=== PATIENT | female | born 1985 | race Caucasian/White ===

== ENCOUNTER 2016-07-13 06:17 | Day surgery (SDC) | payer OTHER ==
[2016-07-13] MEDS ORDERED: ceFAZolin 1 GM VIAL ONE (06:34)
[2016-07-13] MEDS ORDERED: BUPIVACAINE 0.5% PF 30 ML VIAL SUBQ ONE ×2 (07:25)
[2016-07-13] MEDS ORDERED: LACTATED RINGERS 1,000 ML IV ONE ×3 (07:30→08:08)
[2016-07-13] MEDS ORDERED: DEXAMETHASONE 4 MG/ML VIAL IVP ONE (08:00)
[2016-07-13] MEDS ORDERED: ROCURONIUM 50 MG/5 ML VIAL IVP ONE (08:00)
[2016-07-13] MEDS ORDERED: PROPOFOL 200 MG/20 ML VIAL IVP ONE (08:00)
[2016-07-13] MEDS ORDERED: KETOROLAC 30 MG/ML VIAL IVP ONE (08:00)
[2016-07-13] MEDS ORDERED: ONDANSETRON 4 MG/2 ML VIAL IVP ONE (08:00)
[2016-07-13] MEDS ORDERED: SUCCINYLCHOLINE 200 MG/10 ML VIAL IVP ONE (08:00)
[2016-07-13] MEDS ORDERED: GLYCOPYRROLATE 1 MG/5 ML VIAL IVP ONE (08:00)
[2016-07-13] MEDS ORDERED: MIDAZOLAM 2 MG/2 ML VIAL IVP ONE (08:00)
[2016-07-13] MEDS ORDERED: LIDOCAINE-MPF 2% 5 ML VIAL IM ONE (08:00)
[2016-07-13] MEDS ORDERED: NEOSTIGMINE 1 MG/1 ML 10 ML MDV IVP ONE (08:00)
[2016-07-13] MEDS ORDERED: oxyCOD/ACETAMIN 5 MG/325 MG TABLET PO ONE (09:12)
== END 2016-07-13 06:18 | disposition home or self-care (01) ==
PROC: 0WQF0ZZ Repair Abdominal Wall, Open Approach (ICD-10-PCS; principal; 2016-07-13 07:30)
DX: K42.9 Umbilical hernia without obstruction or gangrene (principal)
CPT/HCPCS: 49585; 81025; A9270; J7120

== ENCOUNTER 2017-01-02 10:01 | Emergency (ER) | payer MEDICAID, OTHER ==
[2017-01-02] MEDS ORDERED: SODIUM CHLORIDE 0.9% 1,000 ML IV ONE (10:51)
[2017-01-02] MEDS ORDERED: ONDANSETRON 4 MG/2 ML VIAL IVP STA (10:51)
--- NOTE | 2017-01-02 10:55 | ED Physician Documentation ---
History of Present Illness - Stated complaint Stated Complaint: DEHYDRATED,VOMITTING/15 WKS PG - Chief complaint Chief Complaint: General - Additonal information Additional information: Patient is a 4 para 3 at 14 weeks who has had recurrent issues with hyperemesis gravidarum during all of her pregnancies. She is on Zofran occasionally. She presents with a complaint of mild nausea, vomiting, and diarrhea over the last day. She has no pain or fever. There is no vaginal bleeding. She otherwise is doing well. Other than a recurrent hyperemesis gravidarum she has no health problems. Review of systems: For pertinent positive and negatives in the review of systems please see the history of present illness, otherwise all other systems have been reviewed and are negative. Dragon disclaimer: Parts of this medical record were created using voice recognition technology. Because of the inherent limitations of this system, occasional same sounding word substitutions do occur and persist despite proofreading. Please read the document for context. Review of Systems Constitutional: denies: Fever, Chills GI: reports: Nausea, Vomiting, Diarrhea. denies: Abdominal Pain, Abdominal Swelling PD PAST MEDICAL HISTORY - Past Medical History Cardiovascular: None Respiratory: None Endocrine/Autoimmune: None GI: None : None HEENT: Chronic vision loss Psych: None Musculoskeletal: Scoliosis Derm: None - Past Surgical History Ortho: Other - Present Medications Home Medications: Ambulatory Orders Medication Instructions Recorded Confirmed Multivitamin [Multivitamins] 1 each PO DAILY 07/10/16 01/02/17 Ondansetron HCl [Zofran] 4 mg PO DAILY 01/02/17 01/02/17 Pnv No.121/Iron/Folic Acid 1 tab PO DAILY 01/02/17 01/02/17 [ Multivitamin Tablet] - Allergies Allergies/Adverse Reactions: Allergies Allergy/AdvReac Type Severity Reaction Status Date / Time acetaminophen Allergy Anaphylaxis Verified 07/10/16 14:03 - Social History Does the pt smoke?: No Smoking Status: Never smoker Does the pt drink ETOH?: No Does the pt have substance abuse?: No PD ED PE NORMAL - Vitals Vital signs reviewed: Yes - General General: Alert and oriented X 3, No acute distress, Well developed/nourished - HEENT HEENT: Atraumatic, PERRL, EOMI - Neck Neck: Supple, no meningeal sign, No bony TTP - Cardiac Cardiac: RRR, No murmur - Respiratory Respiratory: No respiratory distress, Clear bilaterally - Abdomen Abdomen: Normal bowel sounds, Soft, Non tender, Non distended, Other (Soft nontender abdomen) - Derm Derm: Normal color, Warm and dry - Extremities Extremities: No deformity, No tenderness to palpate - Neuro Neuro: Alert and oriented X 3 Results - Vitals Vitals: Vital Signs - 24 hr 01/02/17 01/02/17 10:10 12:08 Temperature 36.4 C L Heart Rate 97 82 Respiratory 12 16 Rate Blood Pressure 113/66 121/64 O2 Saturation 99 100 Oxygen O2 Source Room air - Labs Labs: Laboratory Tests 01/02/17 01/02/17 01/02/17 11:11 11:11 12:03 WBC 7.5 RBC 4.41 Hgb 13.7 Hct 39.2 MCV 88.9 MCH 31.1 H MCHC 35.0 RDW 13.5 Plt Count 175 MPV 8.3 Neut # 6.1 Lymph # 0.8 L [place] # 0.4 Eos # 0.1 Baso # 0.0 Absolute Nucleated RBC 0.00 Nucleated RBCs 0.0 Sodium 135 Potassium 3.6 Chloride 104 Carbon Dioxide 22 Anion Gap 9.0 BUN 6 Creatinine 0.5 Estimated GFR (MDRD) 145 Glucose 86 Calcium 9.3 Urine Color YELLOW Urine Clarity CLEAR Urine pH 7.0 Ur Specific [place] 1.020 Urine Protein NEGATIVE Urine Glucose (UA) NEGATIVE Urine Ketones 40 H Urine Occult Blood NEGATIVE Urine Nitrite NEGATIVE Urine Bilirubin NEGATIVE Urine Urobilinogen 1 (NORMAL) Ur Leukocyte Esterase NEGATIVE Ur Microscopic Review NOT INDICATED Urine Culture Comments NOT INDICATED PD MEDICAL DECISION MAKING - ED course ED course: 31-year-old female with a 14 week gestation child presents with a 2 day history of mild nausea vomiting diarrhea. She has a history of hyperemesis gravidarum and takes Zofran on an as-needed basis. On exam she is a well-appearing female does not look overtly ill she has a soft nontender abdomen. She is given 1 L normal saline and 1 L of lactated Ringer's and feels much better her blood work is unremarkable she is tolerating fluids here and is negative for infection at this point in time she will be discharged home. Disposition: To home Clinical impression: 1. Hyperemesis gravidarum Departure - Departure Disposition: Home, Self Care Clinical Impression: Hyperemesis arising during Condition: Good Instructions: ED Preg Morning Sickness Follow-Up: Gopi Bragg MD [Provider Admit Priv/Credential] -
[2017-01-02] MEDS ORDERED: ONDANSETRON 4 MG/2 ML VIAL ONE (11:09)
[2017-01-02] MEDS ORDERED: SODIUM CHLORIDE FLUSH 0.9% 10 ML SYRINGE IVP ONE (11:09)
[2017-01-02 11:23] LABS: BASOPHILS % (AUTO) 0.2 %; EOSINOPHILS # (AUTO) 0.1 10^3/uL (0.0-0.7); EOSINOPHILS % (AUTO) 0.9 %; HCT - HEMATOCRIT 39.2 % (37.0-47.0); HGB - HEMOGLOBIN 13.7 g/dL (12.0-16.0); LYMPHOCYTES # (AUTO) 0.8 10^3/uL (1.5-3.5); LYMPHOCYTES % (AUTO) 11.2 %; MEAN CORPUSCULAR HEMOGLOBIN 31.1 pg (27.0-31.0); MEAN CORPUSCULAR VOLUME 88.9 fL (81.0-99.0); MEAN PLATELET VOLUME 8.3 fL (7.9-10.8); MONOCYTES # (AUTO) 0.4 10^3/uL (0.0-1.0); MONOCYTES % (AUTO) 5.8 %; NEUTROPHILS # (AUTO) 6.1 10^3/uL (1.5-6.6); NEUTROPHILS % (AUTO) 81.9 %; RED BLOOD COUNT 4.41 10^6/uL (4.20-5.40); RED CELL DISTRIBUTION WIDTH 13.5 % (12.0-15.0); UNCORRECTED WHITE BLOOD COUNT 7.5 x10^3/uL; WHITE BLOOD COUNT 7.5 x10^3/uL (4.8-10.8)
[2017-01-02 11:37] LABS: CALCIUM 9.3 mg/dL (8.5-10.3); CREATININE 0.5 mg/dL (0.4-1.0); POTASSIUM 3.6 mmol/L (3.5-5.0)
[2017-01-02] MEDS ORDERED: LACTATED RINGERS 1,000 ML IV STA (12:12)
[2017-01-02 12:13] LABS: BILIRUBIN,URINE NEGATIVE (NEGATIVE)
[2017-01-02 12:14] LABS: UA CHARGE (STRIP ONLY) YES; UR CULTURE IF IND NOT INDICATED
[2017-01-02 13:46] VITALS: BP 101/59
== END 2017-01-02 13:51 | disposition home or self-care (01) ==
LOC: ED 10:01
DX: O21.0 Mild hyperemesis gravidarum (principal); Z3A.15 15 weeks gestation of pregnancy
CPT/HCPCS: 36415; 80048; 81003; 85025; 96361; 96374; 99283; 99284; J7120; 81001; 87086

== ENCOUNTER 2017-01-09 22:45 | Emergency (ER) | payer MEDICAID ==
[2017-01-09] MEDS ORDERED: SODIUM CHLORIDE 0.9% 1,000 ML IV ONE ×2 (23:00→23:36)
[2017-01-09 23:25] LABS: BASOPHILS % (AUTO) 0.2 %; EOSINOPHILS % (AUTO) 0.1 %; HCT - HEMATOCRIT 36.2 % (37.0-47.0); HGB - HEMOGLOBIN 13.2 g/dL (12.0-16.0); LYMPHOCYTES # (AUTO) 0.5 10^3/uL (1.5-3.5); LYMPHOCYTES % (AUTO) 8.8 %; MEAN CORPUSCULAR HEMOGLOBIN 31.2 pg (27.0-31.0); MEAN CORPUSCULAR HGB CONC 36.3 g/dL (32.0-36.0); MEAN CORPUSCULAR VOLUME 85.9 fL (81.0-99.0); MEAN PLATELET VOLUME 7.6 fL (7.9-10.8); MONOCYTES # (AUTO) 0.5 10^3/uL (0.0-1.0); MONOCYTES % (AUTO) 7.6 %; NEUTROPHILS # (AUTO) 5.1 10^3/uL (1.5-6.6); NEUTROPHILS % (AUTO) 83.3 %; NUCLEATED RED BLOOD CELLS AUTO 0.1 /100WBC; RED BLOOD COUNT 4.22 10^6/uL (4.20-5.40); RED CELL DISTRIBUTION WIDTH 13.5 % (12.0-15.0); UNCORRECTED WHITE BLOOD COUNT 6.1 x10^3/uL; WHITE BLOOD COUNT 6.1 x10^3/uL (4.8-10.8)
[2017-01-09 23:34] LABS: BILIRUBIN,URINE NEGATIVE (NEGATIVE); UA CHARGE (STRIP ONLY) YES; UR CULTURE IF IND NOT INDICATED
[2017-01-09 23:38] LABS: ALBUMIN/GLOBULIN RATIO 1.3 (1.0-2.2); BILIRUBIN,TOTAL 1.4 mg/dL (0.2-1.0); CREATININE 0.5 mg/dL (0.4-1.0); POTASSIUM 3.2 mmol/L (3.5-5.0); TOTAL PROTEIN 7.4 g/dL (6.7-8.2)
[2017-01-10] MEDS ORDERED: ONDANSETRON 4 MG/2 ML VIAL ONE (00:07)
[2017-01-10] MEDS ORDERED: ONDANSETRON 4 MG/2 ML VIAL IVP STA (00:07)
--- NOTE | 2017-01-10 00:25 | ED Physician Documentation ---
PD HPI FEMALE - Stated complaint Stated Complaint: VOMITTING BACK PX - Chief complaint Chief Complaint: Abd Pain - History obtained from History obtained from: Patient, Friend - History of Present Illness Timing - onset: How many days ago (3) Timing - details: Gradual onset, Still present Associated symptoms: Abdominal pain, Other (vomiting) Contributing factors: Similar symptoms before: Work up / diagnostics, Treatment Recently seen: Emergency Dept - Additional information Additional information: Patient is a 31 year female, 16 weeks by dates who is presenting to the emergency department for abdominal pain and vomiting. patient states that this she has had a lot of vomiting and again tonight it was uncontrollable so she came to the emergency department for evaluation. Review of Systems Constitutional: denies: Fever, Chills Eyes: denies: Decreased vision, Photophobia Ears: denies: Ear pain, Drainage/discharge Nose: denies: Congestion Throat: denies: Sore throat GI: reports: Abdominal Pain, Nausea, Vomiting. denies: Constipation, Diarrhea : denies: Dysuria, Frequency, Discharge, Vaginal bleeding Neurologic: denies: Generalized weakness, Focal weakness, Numbness Immunocompromised: denies: Immunocompromised PD PAST MEDICAL HISTORY - Past Medical History Past Medical History: Yes Cardiovascular: None Respiratory: None Endocrine/Autoimmune: None GI: None : None HEENT: Chronic vision loss Psych: None Musculoskeletal: Scoliosis Derm: None - Past Surgical History Past Surgical History: Yes Ortho: Other - Present Medications Home Medications: Ambulatory Orders Medication Instructions Recorded Confirmed Multivitamin [Multivitamins] 1 each PO DAILY 07/10/16 01/09/17 Ondansetron HCl [Zofran] 4 mg PO DAILY 01/02/17 01/09/17 Pnv No.121/Iron/Folic Acid 1 tab PO DAILY 01/02/17 01/09/17 [ Multivitamin Tablet] Doxylamine/Pyridoxine HCl 1 each PO TID #20 tablet. 01/10/17 [Rere William 10-10 mg Tablet] - Allergies Allergies/Adverse Reactions: Allergies Allergy/AdvReac Type Severity Reaction Status Date / Time acetaminophen Allergy Anaphylaxis Verified 01/09/17 22:54 - Social History Does the pt smoke?: No Smoking Status: Never smoker Does the pt drink ETOH?: No Does the pt have substance abuse?: No - Immunizations Immunizations are current?: Yes - POLST Patient has POLST: No PD ED PE NORMAL - Vitals Vital signs reviewed: Yes - General General: Alert and oriented X 3, No acute distress - HEENT HEENT: Atraumatic, PERRL - Neck Neck: Supple, no meningeal sign - Cardiac Cardiac: RRR, No murmur - Respiratory Respiratory: No respiratory distress - Derm Derm: Normal color, Warm and dry, No rash - Extremities Extremities: No deformity, No edema, No calf tenderness / cord - Neuro Neuro: Alert and oriented X 3, No motor deficit, No sensory deficit - Psych Psych: Normal mood, Normal affect PD ED PE EXPANDED - General General: Alert - HEENT HEENT: Dry mucous membranes - Abdomen Abdomen: No: Tender to palpation Results - Vitals Vitals: Vital Signs - 24 hr 01/09/17 22:54 Temperature 36.5 C Heart Rate 106 H Respiratory 16 Rate Blood Pressure 118/74 O2 Saturation 99 Oxygen O2 Source Room air - Labs Labs: Laboratory Tests 01/09/17 01/09/17 01/09/17 23:15 23:15 23:15 WBC 6.1 RBC 4.22 Hgb 13.2 Hct 36.2 L MCV 85.9 MCH 31.2 H MCHC 36.3 H RDW 13.5 Plt Count 156 MPV 7.6 L Neut # 5.1 Lymph # 0.5 L [place] # 0.5 Eos # 0.0 Baso # 0.0 Absolute Nucleated RBC 0.00 Nucleated RBCs 0.1 Sodium 132 L Potassium 3.2 L Chloride 101 Carbon Dioxide 17 L Anion Gap 14.0 H BUN 10 Creatinine 0.5 Estimated GFR (MDRD) 145 Glucose 88 Calcium 9.0 Total Bilirubin 1.4 H AST 82 H ALT 54 Alkaline Phosphatase 88 Total Protein 7.4 Albumin 4.2 Globulin 3.2 Albumin/Globulin Ratio 1.3 Lipase 27 Urine Color ORANGE Urine Clarity CLEAR Urine pH 6.0 Ur Specific [place] 1.025 Urine Protein TRACE Urine Glucose (UA) NEGATIVE Urine Ketones >=80 H Urine Occult Blood NEGATIVE Urine Nitrite NEGATIVE Urine Bilirubin NEGATIVE Urine Urobilinogen 0.2 (NORMAL) Ur Leukocyte Esterase NEGATIVE Ur Microscopic Review NOT INDICATED Urine Culture Comments NOT INDICATED PD MEDICAL DECISION MAKING - ED course Complexity details: reviewed old records, reviewed results, re-evaluated patient , considered differential, d/w patient ED course: Patient was seen and examined at bedside. IV access was gained and labs were drawn. Urine was collected. Patient was treated with zofran and IV fluids. Patient was found to have ketones in her urine but no other signs of infection. patient was treated with two liters of fluid. Bedside ultrasound showed a viable IUP with a FHR of 146. Patient had no emesis while in the emergency department and was stable for discharge with outpatient follow up. Departure - Departure Disposition: 01 Home, Self Care Clinical Impression: Hyperemesis arising during Condition: Good Instructions: ED Nausea Vomiting Follow-Up: Dennys Taveras PA-C [Primary Care Provider] - Prescriptions: Doxylamine/Pyridoxine HCl [Diclegis Dr 10-10 mg Tablet] 1 each PO TID #20 tablet. Comments: Your diagnostics today showed mild dehydration but no other abnormalities. It is important to try to stay well hydrated. You can take zofran or dicligis as well as mary for nausea. You should return to the emergency department for vaginal bleeding, fevers, new worsening or uncontrollable symptoms.
[2017-01-10 01:01] VITALS: BP 108/56
== END 2017-01-10 01:08 | disposition home or self-care (01) ==
LOC: ED 22:45
DX: O21.0 Mild hyperemesis gravidarum (principal); Z3A.16 16 weeks gestation of pregnancy
CPT/HCPCS: 80053; 81001; 81003; 83690; 85025; 87086; 96361; 96374; 99284

== ENCOUNTER 2017-06-21 19:22 | Inpatient (IN) | payer MEDICAID ==
[2017-06-21 21:00] LABS: BASOPHILS # (AUTO) 0.1 10^3/uL (0.0-0.1); BASOPHILS % (AUTO) 0.6 %; EOSINOPHILS # (AUTO) 0.2 10^3/uL (0.0-0.7); EOSINOPHILS % (AUTO) 1.3 %; LYMPHOCYTES # (AUTO) 2.3 10^3/uL (1.5-3.5); LYMPHOCYTES % (AUTO) 18.4 %; MEAN CORPUSCULAR HEMOGLOBIN 27.2 pg (27.0-31.0); MEAN CORPUSCULAR VOLUME 82.4 fL (81.0-99.0); MEAN PLATELET VOLUME 9.3 fL (7.9-10.8); MONOCYTES # (AUTO) 0.7 10^3/uL (0.0-1.0); MONOCYTES % (AUTO) 5.2 %; NEUTROPHILS # (AUTO) 9.3 10^3/uL (1.5-6.6); NEUTROPHILS % (AUTO) 74.5 %; PLT - PLATELET COUNT 222 10^3/uL (130-450); RED BLOOD COUNT 4.78 10^6/uL (4.20-5.40); RED CELL DISTRIBUTION WIDTH 14.4 % (12.0-15.0); WHITE BLOOD COUNT 12.5 x10^3/uL (4.8-10.8)
[2017-06-21 21:12] LABS: BILIRUBIN,URINE NEGATIVE (NEGATIVE); GLUCOSE, URINE (UA) NEGATIVE (NEGATIVE); KETONES,URINE (UA) TRACE mg/dL (NEGATIVE); LEUKOCYTE ESTERASE, URINE NEGATIVE (NEGATIVE); NITRITE,URINE NEGATIVE (NEGATIVE); OCCULT BLOOD,URINE NEGATIVE (NEGATIVE); PROTEIN,URINE NEGATIVE (NEGATIVE); UROBILINOGEN,URINE 0.2 (NORMAL) E.U./dL (NORMAL)
[2017-06-21 21:13] LABS: CREATININE 0.6 mg/dL (0.4-1.0); URIC ACID 4.2 mg/dL (2.6-7.2)
[2017-06-21 21:20] LABS: CLARITY,URINE CLEAR (CLEAR)
[2017-06-21 21:22] LABS: BACTERIA,URINE None Seen /HPF (None Seen); RBC,URINE None Seen /HPF (0-5); SQUAMOUS EPITHELIAL CELL,UR FEW Squamous (<= Few)
[2017-06-21 21:23] LABS: CREATININE,URINE 94.2 mg/dL; PROTEIN/CREATININE RATIO,URINE 0.1 (<=0.2)
[2017-06-21] MEDS ORDERED: OXYTOCIN/SODIUM CHLORIDE 250 ML IV ONE (22:14)
[2017-06-21] MEDS ORDERED: miSOPROStol 200 MCG TABLET PR PRN (22:17)
[2017-06-21] MEDS ORDERED: TRANEXAMIC ACID 1,000 MG in SODIUM CHLORIDE 0.9% 100ML 100 ML IV SCH (22:28)
--- NOTE | 2017-06-21 22:44 | HISTORY & PHYSICAL EXAMINATION ---
Admit History - Instructions [place]/Slash: -Left hand click circles element as positive or present. -Right hand click slashes element as negative or not present. - Visit Reason Visit Reason: Contractions - Care: positive: [facility] Risk/History: positive: induced HTN Smoking Status: Never smoker - Mother's Labs Mother's Blood Type: positive: A Mother's RH: positive: Positive GBS: positive: Group B Step Negative Rubella Status: positive: Immune Meds/Allgy - Home Medications Home Medications: Ambulatory Orders Medication Instructions Recorded Confirmed Multivitamin [Multivitamins] 1 each PO DAILY 07/10/16 01/09/17 Ondansetron HCl [Zofran] 4 mg PO DAILY 01/02/17 01/09/17 Pnv No.121/Iron/Folic Acid 1 tab PO DAILY 01/02/17 01/09/17 [ Multivitamin Tablet] Doxylamine/Pyridoxine HCl 1 each PO TID #20 tablet. 01/10/17 [Rere William 10-10 mg Tablet] - Allergies Allergies/Adverse Reactions: Allergies Allergy/AdvReac Type Severity Reaction Status Date / Time acetaminophen Allergy Anaphylaxis Verified 01/09/17 22:54 Physical - Abdominal Exam Vital Signs: Temp Pulse Resp BP Pulse Ox 37.2 C 87 18 131/94 H 99 06/21/17 21:34 06/21/17 21:34 06/21/17 21:34 06/21/17 21:34 06/21/17 21:34 Contraction Intensity: positive: Strong Uterine Resting Tone: positive: Soft - Monitoring Strip Review: positive: Category I - Presentation Presentation: positive: Vertex - Vaginal Exam Membranes: positive: Membranes intact Dilation (in cm): 2 Effacement (%): 60 Station: positive: -1 - Speculum Exam Speculum Exam Performed: positive: No Plan for Labor - Plan For Labor Plan for Labor: HPI: This 31yo @ 39.1wks gestation by L= 7wks U/S who presents for contractions. Has been tray every 3 minutes since approximately 1700 this evening. Upon evaluation she was noted to be 2/60/-1 which is unchanged from office visit today. She had elevated BP in the clinic today at 138/88 and BP upon presenting was elevated to 142/90. Denies CALLAHAN, visual disturbances, RUQ discomfort. Reports +FM. Denies VB or LOF. 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 INDUSTRIAL History: Menarche age 16 Regular cycle <21 days No STD history, no BACTERIOLOGIST INDUSTRIAL surgeries No hx abnormal paps - last pap 2014 WNL PMH: no significant PMH Surgical Hx: Back surgery 2001, wisdom teeth 2005; hernia repair 07/2016 Family Hx: High cholesterol - mother Meds: PNV, Nexium Allergies: Acetaminophen - throat swelling Early labs: 04/12/2017: Blood type A pos, antibody neg Hgb 13.7, Hct 39.1, PLT 238 Rubella immune HIV non-reactive GC/CT negative Hep B non-reactive Treponema negative 1 hour GTT 111 GBS negative Tdap 03/11/2017 Ultrasound: 01/28/2017 FAS WNL, placenta posterior, no previa, 3VC, CASTRO WNL, size c/w dating Assessment: 31yo @ 39.1wks gestation by L=7wk U/S Gestational Hypertension Desires Natural labor Hx hemorrhage Plan: Continuous monitoring AROM after admission and IV placement Initiate Pitocin per protocol Active management and administration of IV pitocin and BC misoprostol immediately following delivery of anterior shoulder. Tranexamic acid administration PRN. Continuation of IV pitocin for 12hrs . 4 units LRBCs type and crossmatched.
[2017-06-21] MEDS ORDERED: SODIUM CHLORIDE 0.9% MINIBAG 100 ML IV ONE (22:45)
[2017-06-21] MEDS ORDERED: SODIUM CHLORIDE FLUSH 0.9% 10 ML SYRINGE ONE (22:47)
[2017-06-21] MEDS ORDERED: TRANEXAMIC ACID 1,000 MG/10 ML VIAL ONE (22:56)
[2017-06-21] MEDS: SODIUM CHLORIDE FLUSH 0.9% 10 ML SYRINGE IVP PRN (23:12)
[2017-06-21] MEDS: LACTATED RINGERS 1,000 ML IV SCH (23:12)
--- NOTE | 2017-06-21 23:41 | PROVIDER PROGRESS NOTE ---
Labor Progress Note - Uterine Monitoring Uterine Monitoring Mode: positive: External toco Contraction Frequency (min/apart): 3 Contraction Intensity: positive: Strong Uterine Resting Tone: positive: Soft - Monitoring Monitor Mode: positive: External ultrasound Heart Rate Baseline: 150 Heart Rate Variability: positive: Moderate (6-25 bmp) Accelerations: positive: Present, 15x15 Decelerations: positive: None Strip Review: positive: Category I - Vaginal Exam Dilation (in cm): 3 Effacement (%): 60 Station: -1 - Labor Progress Note Labor Progress Note/Additional Text: 06/21/2017 @ 2335 S: Coping well with contractions. Easily holding conversation with contractions. and independent driver Yoly supportive at bedside. O: SVE 360/-1, FHR Baseline 140s, moderate variability, +accels, no decels. Contractions palpate firm every 3 minutes lasting 45-60 seconds. AROM @2325, moderate amount of clear fluid. A: 31yo @ 39.1wks gestation by L=7wk U/S. Gestational hypertension Pitocin induction secondary to gestational hypertension Hx pp hemorrhage. P: Dr. Bragg, manager talent acquisition physician, notified and agrees with following plan. Continue pitocin per protocol. Continuous monitoring. Encouraged ambulation and position changes. Active management of third stage. Anticipate spontaneous vaginal delivery.
[2017-06-21] MEDS ORDERED: OXYTOCIN/SODIUM CHLORIDE 250 ML IV SCH (23:45)
[2017-06-22] MEDS ORDERED: LIDOCAINE 1% 50 ML MDV ONE (00:08)
--- NOTE | 2017-06-22 01:20 | PROVIDER PROGRESS NOTE ---
Labor Progress Note - Uterine Monitoring Uterine Monitoring Mode: positive: External toco Contraction Frequency (min/apart): 4-6 Contraction Intensity: positive: Strong Uterine Resting Tone: positive: Soft - Monitoring Monitor Mode: positive: External ultrasound Heart Rate Baseline: 130 Heart Rate Variability: positive: Moderate (6-25 bmp) Accelerations: positive: Present, 15x15 Decelerations: positive: None Strip Review: positive: Category I - Labor Progress Note Labor Progress Note/Additional Text: S: Breathing easily through contractions. Desires to get in jacuzzi. sleeping at bedside. Incident Analyst labor supporting. O: BP 123/98, FHR baseline 130s, moderate variability, +accels, no decels. Contractions palpate strong every 4-6 minutes lasting 60-110 seconds with soft resting tone. A: 31yo @ 39.1wks gestation by L=7wk U/S Gestational HTN Pitocin inducation of labor secondary to gestational HTN Hx hemorrhage AROM x 2 hrs Blood bank identified patient as antibody positive (Anti-E) - 4 units LRBCs pending availability P: Continue active management. Continuous monitoring Active management of third stage Anticipate spontaneous vaginal delivery
[2017-06-22] MEDS ORDERED: ONDANSETRON 4 MG/2 ML VIAL IVP PRN (04:34)
[2017-06-22] MEDS ORDERED: ONDANSETRON 4 MG/2 ML VIAL ONE (04:38)
--- NOTE | 2017-06-22 04:41 | PROVIDER PROGRESS NOTE ---
Labor Progress Note - Uterine Monitoring Uterine Monitoring Mode: positive: External toco Contraction Frequency (min/apart): 2-3 Contraction Intensity: positive: Strong Uterine Resting Tone: positive: Soft - Monitoring Monitor Mode: positive: External ultrasound Heart Rate Variability: positive: Moderate (6-25 bmp) Accelerations: positive: Present, 15x15 Decelerations: positive: None Strip Review: positive: Category I - Labor Progress Note Labor Progress Note/Additional Text: S: Breathing through contractions. Coping well with contractions. Reports increased pressure with contractions but no pressure between contractions. Experiencing nausea. sleeping at bedside. Farm Operations Manager labor supporting at bedside. O: BP 146/94. FHR Baseline 140s, moderate variability, +accels, no decels. Contractions palpate firm every 2-3 min lasting 45-120 seconds with soft resting tone. A: 31yo @ 39.2wks gestation by L=7wk U/S Active labor Gestational HTN Pitocin induction of labor secondary to gestational HTN Hx hemorrhage AROM x 5.5hrs P: Continue active management Continue pitocin per protocol Active management of third stage Anticipate spontaneous vaginal delivery.
[2017-06-22] MEDS: LACTATED RINGERS 1,000 ML IV SCH (05:21)
--- NOTE | 2017-06-22 06:08 | PROVIDER PROGRESS NOTE ---
Labor Progress Note - Uterine Monitoring Uterine Monitoring Mode: positive: External toco Contraction Frequency (min/apart): 3-5 Contraction Intensity: positive: Strong Uterine Resting Tone: positive: Soft - Monitoring Monitor Mode: positive: External ultrasound Heart Rate Baseline: 130 Heart Rate Variability: positive: Moderate (6-25 bmp) Accelerations: positive: Present, 15x15 Decelerations: positive: Variable Strip Review: positive: Category I - Labor Progress Note Labor Progress Note/Additional Text: S: Breathing through contractions. Up to bathroom to urinate and now is lying left lateral in bed with and lecturer in marketing at bedside. Coping well with contractions. Feeling increasing pressure with contractions. O: BP 129/85. FHR baseline 130s, moderate variability, +accels, occasional variable decelerations. Contractions palpate firm every 2.5-5 minutes lasting 60 -120 seconds with soft resting tone. Last SVE 5/80/-1. Pitocin currently at 6. A:31yo @ 39.2wks gestation by L=7wk U/S Gestational HTN Pitocin induction of labor secondary to gestational HTN Active labor AROM x 7 hours Hx hemorrhage P: Continue active management Active management of third stage Continuous monitoring Anticipate spontaneous vaginal delivery.
[2017-06-22] MEDS ORDERED: miSOPROStol 100 MCG TABLET BC SCH (06:35)
[2017-06-22] MEDS ORDERED: OXYTOCIN/SODIUM CHLORIDE 250 ML IV ONE (06:57)
[2017-06-22] MEDS ORDERED: WITCH HAZEL/GLYCERIN 1 EACH MED..PAD TOP PRN (06:57)
[2017-06-22] MEDS ORDERED: LACTATED RINGERS 1,000 ML IV SCH (07:00)
--- NOTE | 2017-06-22 07:22 | DELIVERY NOTE ---
Delivery Note - Labor Labor: positive: Augmented by ARM, Augmented by oxytocin - Delivery Method Delivery Method: positive: Spontaneous vaginal delivery - Presentation Presentation: positive: Vertex, MINNIE - left occiput anterior - Nuchal Cord Nuchal Cord: positive: None - Anesthetic Anesthetic: positive: Lidocaine - 1% plain - Amniotic Fluid Description Amniotic Fluid Description: positive: Clear - Episiotomy Type Episiotomy Type: positive: None - Laceration Laceration: positive: 1st degree - Suture Suture Type: positive: Vicryl Suture Size: positive: 3-0 - Delivery Outcome Delivery Outcome: positive: Livebirth - : positive: Placed in direct skin contact with mother, Stimulated, Warmed , [place] used [place] sex: positive: Female - Cord Cord: positive: 3 vessels - Placenta Placenta: positive: Intact, Spontaneous - Estimated Blood Loss Estimated Blood Loss (in cc): 100 - Post Delivery Events Post Delivery Events: positive: No post delivery events - Delivery Comments (Free Text/Narrative) Delivery Comments (Free Text/Narrative): Labor: This 31yo @ 39.2wks gestation by L=7wk U/S presented with contractions and elevated BP on 06/21/2017 at 2100. Cervix was 2/50/-1 and vertex. Pt was admitted for IOL secondary to gestational HTN. FHR pattern demonstrated 130 baseline in a category I pattern throughout. Normal labor course. AROM occurred at 2325 and was a moderate amount of clear fluid. Pitocin was initiated per protocol. : Normal of a viable female infant. No nuchal. 's 8/9 at 1 and 5 min respectively at 0635 on 06/22/2017. The was placed on maternal abdomen, stimulated, dried, and placed skin to skin. The umbilical cord was allowed to stop pulsating and was then doubly clamped and cut by FOB. Cord blood was obtained. Placenta delivered spontaneously and intact @ 0637. 3VC. Pitocin was opened up and administered via IV in addition to 800mg misoprostol buccaly for hemostasis. EBL 100mL. Uterine fundus firm and there is no excessive bleeding. The perineum, vagina, and cervix were inspected and found to have first degree laceration. 1% lidocaine administered and laceration repaired in standard fashion under sterile conditions. Vaginal examination following the repair was done. Tissues well approximated. initiated. Family bonding well. Both mother and baby are in stable condition. Will continue Pitocin drip IV for 12 hours in addition to regular fundal massage.
[2017-06-22] MEDS ORDERED: TRANEXAMIC ACID 1,000 MG in SODIUM CHLORIDE 0.9% 100ML 100 ML IV ONE (08:00)
[2017-06-22] MEDS ORDERED: miSOPROStol 200 MCG TABLET PO SCH (08:13)
[2017-06-22] MEDS: SODIUM CHLORIDE FLUSH 0.9% 10 ML SYRINGE IVP SCH ×2 (08:50→09:44)
[2017-06-22] MEDS: IBUPROFEN 800 MG TABLET PO SCH ×3 (09:04→21:20)
[2017-06-22] MEDS: HYDROCORTISONE/PRAMOXINE 10 GM PR PRN (09:30)
[2017-06-22] MEDS: oxyCODONE 5 MG TABLET PO PRN ×3 (13:54→22:02)
[2017-06-22] MEDS: SODIUM CHLORIDE FLUSH 0.9% 10 ML SYRINGE IVP PRN (18:33)
[2017-06-22] MEDS: DOCUSATE SODIUM 100 MG CAPSULE PO SCH (21:21)
[2017-06-23] MEDS: oxyCODONE 5 MG TABLET PO PRN ×2 (01:58→05:28)
[2017-06-23] MEDS: IBUPROFEN 800 MG TABLET PO SCH ×5 (02:37→21:45)
--- NOTE | 2017-06-23 08:10 | PROVIDER PROGRESS NOTE ---
Objective - Vital Signs/Intake & Output Vital Signs: Vital Signs x48h Temp Pulse Resp BP Pulse Ox 06/23/17 07:48 36.5 C 71 16 117/70 99 06/23/17 05:42 36.5 C 62 18 Intake & Output: Intake & Output 06/20/17 06/21/17 06/22/17 06/23/17 23:59 23:59 23:59 23:59 Intake Total 2360.0 Output Total 1575 Balance 785.0 - Lab Results Fish Bones: 06/21/17 20:50 06/21/17 20:50 Assessment/Plan - Problem List (1) Vaginal delivery with potential for hemorrhage Impression: S: Bonding well with baby. without difficulty. Bleeding decreased and is light. Pain well controlled with ibuprofen and occasional oxycodone. Planning to only take ibuprofen today. Perineum comfortable. Less back discomfort than yesterday. O: Continues to have elevated BPs (155/89, 142/76, 133/97, 141/108. Afebrile. Heart RRR w/o M/G/R, lungs CTAB abdomen soft and nontender with fundus firm at U -2. Scant lochia rubra. Perineum intact, repair w/o edema. Bilateral LE's no edema. A: 31yo -->P4 PPD #1 with TSVAB Hx hemorrhage requiring transfusion P: Continue routine care and meds. Plan discharge home tomorrow.
[2017-06-23] MEDS: DOCUSATE SODIUM 100 MG CAPSULE PO SCH ×2 (09:04→21:42)
[2017-06-24] MEDS: IBUPROFEN 800 MG TABLET PO SCH ×2 (03:42→10:20)
--- NOTE | 2017-06-24 09:33 | Discharge Plan ---
Discharge Plan Disposition: Home, Self Care Condition: Good Diet: Regular Activity Restrictions: Activity as Tolerated Shower Restrictions: No Driving Restrictions: No Weight Bearing: Full Weight Additional Instructions or Follow Up instructions: 06/24/2017, PPD#2 S: Bonding well with baby. without difficulty. Pain well controlled with ibuprofen. Having some continued round ligament pain and is planning to seek healthcare economics manager after 3 weeks . Perineum comfortable. Desires tubal ligation. Expresses concern about her hx of anxiety that has caused her to lose sleep because she watches the baby all night long. O: Few elevated BPs throughout the night. BPs have normalized since 0000 this morning. Heart RRR w/o M/G/R, lungs CTAB. Abdomen soft and nontender. Fundus firm at U-3. Bilateral LE's no edema. A: 31yo -->P2 PPD#2 s/p TSVD Gestation HTN Hx anxiety Hx hemorrhage P: Reviewed pp self care and warning signs. Discharge home today. Rx Colace 100mg PO PRN constipation #60 with 1 refill. Zoloft 50mg PO once daily #60 with 1 refill. Lobetalol 100mg BID #60 with 1 refill. Continue PNV while . RTC 6-8wks or sooner PRN. Will call patient tomorrow with date for tubal ligation and pre-op appt. Pt verbalized understanding and agrees to above plan. Denies further questions or concerns today. No Smoking: If you smoke, Please STOP! Call for help.
[2017-06-24] MEDS: HYDROCORTISONE/PRAMOXINE 10 GM PR PRN (10:18)
[2017-06-24] MEDS: DOCUSATE SODIUM 100 MG CAPSULE PO SCH (10:20)
[2017-06-24 11:46] VITALS: BP 135/88
--- NOTE | 2017-06-24 12:03 | Labor Flowsheet ---
Labor Flowsheet Datetime Report Generated by CPN: 06/24/2017 12:02 Datetime: 06/24/2017 07:54 VITAL SIGNS NBP Sys/Lilliana/Mean (mmHg): 135 : 88 : 98 Pulse: 77 COMMUNICATION LaborFlag: Labor Datetime: 06/23/2017 07:40 SpO2 (%): 100 Datetime: 06/22/2017 06:15 Stage of : Labor UTERINE ACTIVITY Monitor Mode: External Frequency (min): 3 Quality: Strong Duration (sec): 50 Pattern: Normal: <= 5 Contractions in 10 Minutes Resting Tone (Palpate): Relaxed ASSESSMENT A Monitor Mode: Telemetry FHR Baseline Rate : 140 Variability: Moderate 6-25 bpm Accelerations: 15X15 Decelerations: None Category: Category I Datetime: 06/22/2017 06:00 Respirations: 16 Temperature (C): 36.4 Temperature Route: Oral Datetime: 06/22/2017 05:01 MEDICATIONS Pitocin (milliunits): Increased to @ 6 Datetime: 06/22/2017 04:58 VAGINAL EXAM Dilatation (cm): 5.0 Effacement (%): 80 Station: -1 Datetime: 06/22/2017 02:30 Actions for Decelerations: Side to Side Exam by: Ericka Leavitt RN Membrane Status: Ruptured Membranes Ruptured Date/Time: 06/21/2017 23:08 Datetime: 06/22/2017 01:46 FHR Baseline Changes: No Baseline Change
--- NOTE | 2017-06-28 09:39 | DISCHARGE SUMMARY ---
DATE OF SERVICE: Physician: CASSIA Lomeli DATE OF ADMISSION: 06/21/2017 DATE OF DISCHARGE: 06/24/2017 DATE OF ADMISSION: 06/21/2017 DATE OF DISCHARGE: 06/24/2017 DIAGNOSIS ON ADMISSION: 1. A 31-year-old G3, P3-0-0-3 at 39.1 weeks gestation. 2. Early labor. 3. Gestational hypertension. DIAGNOSIS ON DISCHARGE: 1. A 31-year-old G3, P3-0-0-4 status post spontaneous vaginal delivery on 06/22/2017. 2. Normal recovery. HISTORY OF PRESENT ILLNESS: Minerva is a patient of [facility] who resented on 06/21/2017 with complaints of contractions. Upon evaluation, she was noted to be 260 -1, which is unchanged from the office visit that day. She had an elevated blood pressure in the clinic today and upon presenting the blood pressure was elevated to 142/90. The patient was admitted to Labor and Delivery for Pitocin induction indicated for gestational hypertension. In any event, she received Pitocin per protocol. She spontaneously delivered a viable female infant named Cyndi. Apgars were 8 and 9 at 1 and 5 minutes respectively. Estimated blood loss was 100 mL. Because of the patient's history of severe hemorrhage, she was given 800 mg misoprostol buccally in addition to Pitocin IV. A first degree laceration was repaired at the bedside under usual fashion under sterile conditions. She has been doing well in her course. She is ambulating and tolerating a regular diet. She is urinating without difficulty and her lochia is normal. Her pain is well controlled with oral medications. She will be discharged home today on day #2 with prescriptions for ibuprofen and Colace. She intends to followup with myself at [facility] in 1 week. She will also be going home with a prescription for Labetalol 100 mg b.i.d. She has been given precautions to call if she has any worsening fevers, chills, abdominal pain, increased bleeding or foul smelling vaginal lochia. TD: 06/28/2017 10:37
== END 2017-06-24 11:15 | disposition home or self-care (01) | DRG 775 ==
LOC: WFO 19:22 → FBP 19:25 → WFO 22:13 → FBP 22:14
PROVIDERS: ADMIT Nurse Practitioner Obstetrics & Gynecology; ATTEND Nurse Practitioner Obstetrics & Gynecology
PROC: 10907ZC Drainage of Amniotic Fluid, Therapeutic from Products of Conception, Via Natural or Artificial Opening (ICD-10-PCS; 2017-06-21)
PROC: 10E0XZZ Delivery of Products of Conception, External Approach (ICD-10-PCS; principal; 2017-06-22)
PROC: 0HQ9XZZ Repair Perineum Skin, External Approach (ICD-10-PCS; 2017-06-22)
DX: O13.4 Gestational [pregnancy-induced] hypertension without significant proteinuria, complicating childbirth (principal); O70.0 First degree perineal laceration during delivery; Z3A.39 39 weeks gestation of pregnancy; Z37.0 Single live birth
CPT/HCPCS: 36415; 81001; 82565; 82570; 84156; 84450; 84460; 84550; 85025; 86850; 86870; 86900; 86901; 86902; 86920; 86922; 87086; 99213

== ENCOUNTER → 2017-07-12 | Outpatient (CLI) | payer MEDICAID ==
[2017-07-12 20:43] LABS: BASOPHILS # (AUTO) 0.1 10^3/uL (0.0-0.1); EOSINOPHILS # (AUTO) 0.6 10^3/uL (0.0-0.7); EOSINOPHILS % (AUTO) 8.2 %; HGB - HEMOGLOBIN 12.4 g/dL (12.0-16.0); LYMPHOCYTES % (AUTO) 38.7 %; MEAN CORPUSCULAR HEMOGLOBIN 26.6 pg (27.0-31.0); MEAN CORPUSCULAR HGB CONC 32.5 g/dL (32.0-36.0); MEAN CORPUSCULAR VOLUME 81.6 fL (81.0-99.0); MEAN PLATELET VOLUME 7.7 fL (7.9-10.8); MONOCYTES # (AUTO) 0.5 10^3/uL (0.0-1.0); MONOCYTES % (AUTO) 5.9 %; NEUTROPHILS # (AUTO) 3.5 10^3/uL (1.5-6.6); NEUTROPHILS % (AUTO) 46.2 %; PLT - PLATELET COUNT 312 10^3/uL (130-450); RED BLOOD COUNT 4.68 10^6/uL (4.20-5.40); RED CELL DISTRIBUTION WIDTH 14.6 % (12.0-15.0); WHITE BLOOD COUNT 7.7 x10^3/uL (4.8-10.8)
[2017-07-12 21:09] LABS: BILIRUBIN,URINE NEGATIVE (NEGATIVE); CLARITY,URINE HAZY (CLEAR); GLUCOSE, URINE (UA) NEGATIVE (NEGATIVE); KETONES,URINE (UA) NEGATIVE (NEGATIVE); LEUKOCYTE ESTERASE, URINE NEGATIVE (NEGATIVE); NITRITE,URINE NEGATIVE (NEGATIVE); OCCULT BLOOD,URINE MODERATE (NEGATIVE); PROTEIN,URINE NEGATIVE (NEGATIVE); UROBILINOGEN,URINE 0.2 (NORMAL) E.U./dL (NORMAL)
[2017-07-12 21:13] LABS: HCG UR QUAL NEGATIVE
== END ==
LOC: LAB.R 20:37
PROVIDERS: ATTEND Obstetrics & Gynecology
DX: Z01.812 Encounter for preprocedural laboratory examination (principal)
CPT/HCPCS: 81003; 81025; 85025

== ENCOUNTER 2017-07-13 06:24 | Day surgery (SDC) | payer MEDICAID ==
[2017-07-12 20:43] LABS: BASOPHILS # (AUTO) 0.1 10^3/uL (0.0-0.1); EOSINOPHILS # (AUTO) 0.6 10^3/uL (0.0-0.7); EOSINOPHILS % (AUTO) 8.2 %; HGB - HEMOGLOBIN 12.4 g/dL (12.0-16.0); LYMPHOCYTES % (AUTO) 38.7 %; MEAN CORPUSCULAR HEMOGLOBIN 26.6 pg (27.0-31.0); MEAN CORPUSCULAR HGB CONC 32.5 g/dL (32.0-36.0); MEAN CORPUSCULAR VOLUME 81.6 fL (81.0-99.0); MEAN PLATELET VOLUME 7.7 fL (7.9-10.8); MONOCYTES # (AUTO) 0.5 10^3/uL (0.0-1.0); MONOCYTES % (AUTO) 5.9 %; NEUTROPHILS # (AUTO) 3.5 10^3/uL (1.5-6.6); NEUTROPHILS % (AUTO) 46.2 %; PLT - PLATELET COUNT 312 10^3/uL (130-450); RED BLOOD COUNT 4.68 10^6/uL (4.20-5.40); RED CELL DISTRIBUTION WIDTH 14.6 % (12.0-15.0); WHITE BLOOD COUNT 7.7 x10^3/uL (4.8-10.8)
[2017-07-12 21:09] LABS: BILIRUBIN,URINE NEGATIVE (NEGATIVE); CLARITY,URINE HAZY (CLEAR); GLUCOSE, URINE (UA) NEGATIVE (NEGATIVE); KETONES,URINE (UA) NEGATIVE (NEGATIVE); LEUKOCYTE ESTERASE, URINE NEGATIVE (NEGATIVE); NITRITE,URINE NEGATIVE (NEGATIVE); OCCULT BLOOD,URINE MODERATE (NEGATIVE); PROTEIN,URINE NEGATIVE (NEGATIVE); UROBILINOGEN,URINE 0.2 (NORMAL) E.U./dL (NORMAL)
[2017-07-12 21:13] LABS: HCG UR QUAL NEGATIVE
[2017-07-13] MEDS ORDERED: LACTATED RINGERS 1,000 ML IV ONE ×2 (06:35→08:15)
--- NOTE | 2017-07-13 08:10 | PREOP HISTORY & PHYSICAL ---
DATE OF SERVICE: 07/13/2017 Physician: Gopi Wallace MD DIAGNOSIS: Desires permanent sterilization. PROCEDURE: Laparoscopic bilateral tubal ligation/possible bilateral salpingectomy. HISTORY OF PRESENT ILLNESS: Patient is a 31-year-old 3, para 3-0-0-4 woman who delivered uneventfully on 06/22/2017. She has a history of gestational hypertension, which is well controlled currently. She has had counseling with Juany Alvarez on two occasions and strongly expressed the desire for permanent sterilization. She understands that sterilization is irreversible and a surgical procedure carrying surgical risks such as blood loss, infection, and damage to adjacent vessels and urinary bladder. PAST MEDICAL HISTORY: No chronic disease history. ALLERGIES: Tylenol MEDICATIONS 1. vitamins. 2. Labetalol 100 mg b.i.d. 3. Witch jahaira and Epifoam. 4. Zoloft 50 mg. FAMILY HISTORY: Noncontributory. SOCIAL HISTORY: Nonsmoker. No alcohol, drug, or tobacco use. REVIEW OF SYSTEMS CONSTITUTIONAL: Negative. HEMATOLOGIC: Negative. Not an easy bleeder. HEENT: Negative. HEART: Negative. LUNGS: Negative. GASTROINTESTINAL: Negative. GENITOURINARY: Negative. MUSCULOSKELETAL: Negative. NEUROLOGIC: Negative. PSYCHIATRIC: Negative. PHYSICAL EXAMINATION GENERAL: Well groomed, no apparent distress. VITAL SIGNS: Posted. HEENT: Supple neck, no thyromegaly. LUNGS: Clear to auscultation. CARDIAC: Regular. No murmur. No gallop. BREASTS: Full. No masses. ABDOMEN: Soft, nontender. Uterus of 14 weeks' size, nontender. GENITOURINARY: Minimal if any lochia. EXTREMITIES: Nonedematous. No calf tenderness. NEUROLOGIC: Grossly intact. LABORATORY DATA: Labs pending. ASSESSMENT: This is a 31-year-old multiparous woman who, after careful consideration, desires permanent sterilization. She realizes the risks and that it is irreversible. Today, I reviewed the risks and benefits again. Appropriate informed consent paperwork and [facility] paperwork completed. PLAN: Laparoscopic bilateral tubal ligation with salpingectomy if possible. TD: 07/12/2017 17:35 [facility]
[2017-07-13] MEDS ORDERED: ONDANSETRON 4 MG/2 ML VIAL IVP ONE (08:12)
[2017-07-13] MEDS ORDERED: SUCCINYLCHOLINE 200 MG/10 ML VIAL IVP ONE (08:12)
[2017-07-13] MEDS ORDERED: ROCURONIUM 50 MG/5 ML VIAL IVP ONE (08:12)
[2017-07-13] MEDS ORDERED: PROPOFOL 1000 MG/100 ML IV ONE (08:12)
[2017-07-13] MEDS ORDERED: DEXAMETHASONE 4 MG/ML VIAL IVP ONE (08:12)
[2017-07-13] MEDS ORDERED: ePHEDrine 50 MG/ML VIAL IVP ONE (08:12)
[2017-07-13] MEDS ORDERED: NEOSTIGMINE 1 MG/1 ML 10 ML MDV IVP ONE (08:12)
[2017-07-13] MEDS ORDERED: LIDOCAINE-MPF 2% 5 ML VIAL IM ONE (08:12)
[2017-07-13] MEDS ORDERED: MIDAZOLAM 2 MG/2 ML VIAL IVP ONE (08:12)
[2017-07-13] MEDS ORDERED: METOPROLOL 5 MG/5 ML VIAL IVP ONE (08:12)
[2017-07-13] MEDS ORDERED: GLYCOPYRROLATE 1 MG/5 ML VIAL IVP ONE (08:12)
[2017-07-13] MEDS ORDERED: LIDOCAINE 1%-EPI 1:100000 20 ML MDV SUBQ ONE ×2 (08:20)
--- NOTE | 2017-07-13 08:58 | OPERATIVE REPORT ---
Operative Report - General Procedure Date: 07/13/17 Planned Procedure: Bilateral tubal ligation/salpingectomy Pre-Op Diagnosis: Desires sterilization Procedure Performed: Laparoscopic bilateral salpingectomy Post Op Diagnosis: Same as above - Procedure Note Primary Surgeon: Gopi Wallace MD Secondary Surgeon: None Anesthesia Provider: Isaiah Collado CRNA Anesthesia Technique: General ET tube (Difficult intubation requiring glide scope) Pathology: 2 Fallopian tubes IV Fluids (mL): 1,300 Estimated Blood Loss (mL): 5 Urine Output (mL): 400 Drain/Tube Type: Other (Baird catheter, To be discontinued in recovery) Complications: None - Other Other Information/Narrative: Difficult intubation requiring glide scope.Reference Isaiah Collado's notes.Intubation successful
[2017-07-13 10:47] VITALS: BP 138/88
--- NOTE | 2017-07-13 11:38 | OPERATIVE REPORT ---
DATE OF SERVICE: 07/13/2017 Physician: Gopi Wallace MD DATE OF SURGERY: 07/13/2017 PREOPERATIVE DIAGNOSIS: Desires sterilization. POSTOPERATIVE DIAGNOSIS: Desires sterilization. NAME OF PROCEDURE: Bilateral salpingectomy/sterilization. SURGEON: Gopi Wallace MD, FACOG, FICS ANESTHESIA: General anesthesia with ET tube. Note: Difficult intubation, requiring GlideScope. Reference tester sound Tobias's notes. RECYCLING OR RUBBISH COLLECTOR: None. ANESTHESIOLOGIST: Isaiah Collado CRNA PATHOLOGY: Two tubes. INTRAVENOUS FLUIDS: 1300. ESTIMATED BLOOD LOSS: 5. URINE OUTPUT: 400 mL DRAINS: Baird to catheter, which will be discontinued in Recovery. COMPLICATIONS: Difficult Intubation, Successfully Resolved. FINDINGS: Uterus is roughly 14 weeks' size and regular. Both tubes appear normal. Ovaries are normal with some cystic changes. Cervix is open with no cervicitis or discharge. TECHNIQUE: Prior to the surgery, the patient was counseled once again on the permanence, risks and benefits, and alternatives to sterilization. She is certain she desires this procedure. Appropriate informed consent paperwork signed, as well as [facility] papers. The patient was placed on the operating table in the supine position. She was prepared for intubation. Two attempts were made unsuccessfully, followed by a successful attempt with GlideScope. Reference a AFVIOLA Collado's notes. She was prepped and draped in the customary sterile fashion. A timeout briefing was done per protocol. A VCare uterine manipulator was uneventfully placed. Sounding was 8 cm and VCare adjusted appropriately. Later, Baird was placed uneventfully. We turned our attention to the abdominal phase; 5 mL of lidocaine 1% was placed under the umbilical skin fold. A small incision was made. Using a Visiport, a 5 mm trocar was placed into the abdominal cavity uneventfully. Abdomen was insufflated with CO2 gas at 15 mm of pressure. Anesthetic then was placed for the right and left lower quadrant ports. The 5 mm Visiport trocars were uneventfully inserted. The abdomen was then assessed. Starting on the right side, the right tube was elevated and tented to reveal the mesentery. Tubal mesentery was desiccated and divided with the LigaSure, then removed. Next, the same process was repeated on the left-hand side. All surgical sites were inspected and found to be hemostatically secure. At this point, the procedure was concluded and the gas turned off. Roughly 800 mL of warm, normal saline was placed in the abdomen with 10 mL of 1% lidocaine. All gas was expelled. All trocars were then removed. Skin was closed with interrupted stitches of 4-0 Monocryl and dressed with Dermabond. The V-Care uterine manipulator was then removed. The patient was uneventfully aroused from general anesthesia and taken to the recovery room in good condition. In recovery, her Baird will be removed. She was appraised of intraoperative events. Preparation for discharge was made, including warning sign and callback instructions. DISCHARGE MEDICATIONS 1. Motrin 600 q.6 hours. 2. Oxycodone 5 mg q.4 hours p.r.n. breakthrough pain. 3. Colace 250 mg b.i.d. 4. Labetalol 100 mg p.o. B.i.d. 5. vitamins with iron. TD: 07/13/2017 11:37 MTDMarita
== END 2017-07-13 06:25 | disposition home or self-care (01) ==
LOC: SDS 06:24
PROVIDERS: ATTEND Obstetrics & Gynecology
PROC: 0UT74ZZ Resection of Bilateral Fallopian Tubes, Percutaneous Endoscopic Approach (ICD-10-PCS; 2017-07-13)
PROC: 0UT7FZZ Resection of Bilateral Fallopian Tubes, Via Natural or Artificial Opening With Percutaneous Endoscopic Assistance (ICD-10-PCS; principal; 2017-07-13 07:30)
DX: Z30.2 Encounter for sterilization (principal)
CPT/HCPCS: 58661; 81003; 81025; 85025; J7120

== ENCOUNTER 2018-02-14 23:59 | Emergency (ER) | payer MEDICAID ==
[2018-02-15] MEDS ORDERED: ONDANSETRON ODT 4 MG Prepack 2 TL STA (00:29)
--- NOTE | 2018-02-15 00:33 | ED Physician Documentation ---
PD HPI HEADACHE - Stated complaint Stated Complaint: HEADACHE,VOMITING - Chief complaint Chief Complaint: General - History obtained from History obtained from: Patient - History of Present Illness Timing - onset: Today Timing - onset during: Rest Timing - details: Gradual onset, Still present Location: Left Quality: Aching. No: Like head is exploding Associated symptoms: Numbness. No: Fever, Stiff neck, Nausea Similar symptoms before: Work up / diagnostics, Treatment Recently seen: Not recently seen - Additional information Additional information: Patient is a 32 year old female with a history of migraines who is presenting to the emergency department for headache. patient states that she has a at home and has not been sleeping much. patient has had a headache developing over the last day or so. patient states that it was behind her left eye and normally it is global. Patient states that she had some numbness in her hand and then had a panic attack so she came to the hospital. Upon initial evaluation in the emergency department patient's symptoms had resolved aside from a dull headache. Review of Systems Constitutional: denies: Fever, Chills Eyes: reports: Photophobia Ears: denies: Ear pain Nose: denies: Congestion Cardiac: denies: Chest pain / pressure, Palpitations GI: reports: Nausea, Vomiting. denies: Constipation, Diarrhea : denies: Dysuria, Frequency Neurologic: reports: Numbness, Headache Psychiatric: reports: Anxiety Immunocompromised: denies: Immunocompromised PD PAST MEDICAL HISTORY - Past Medical History Cardiovascular: Hypertension Respiratory: None Endocrine/Autoimmune: None GI: None : None HEENT: Chronic vision loss Psych: Anxiety Musculoskeletal: Scoliosis Derm: None - Past Surgical History Past Surgical History: Yes Ortho: Other - Present Medications Home Medications: Ambulatory Orders Medication Instructions Recorded Confirmed Pnv No.121/Iron/Folic Acid 1 tab PO DAILY 01/02/17 07/13/17 [ Multivitamin Tablet] Labetalol [Trandate] 100 mg PO DAILY 07/12/17 07/13/17 Sertraline [Zoloft] 50 mg PO DAILY 07/12/17 07/13/17 Ondansetron Odt [Zofran] 4 mg TL Q6H PRN #14 tablet 02/15/18 - Allergies Allergies/Adverse Reactions: Allergies Allergy/AdvReac Type Severity Reaction Status Date / Time acetaminophen Allergy Anaphylaxis Verified 02/15/18 00:15 - Social History Does the pt smoke?: No Smoking Status: Never smoker Does the pt drink ETOH?: No Does the pt have substance abuse?: No - Immunizations Immunizations are current?: Yes - POLST Patient has POLST: No PD ED PE NORMAL - Vitals Vital signs reviewed: Yes - General General: Alert and oriented X 3, No acute distress, Well developed/nourished - HEENT HEENT: Atraumatic, PERRL, Moist mucous membranes - Cardiac Cardiac: RRR, No murmur - Respiratory Respiratory: No respiratory distress - Derm Derm: Normal color, No rash - Extremities Extremities: No deformity, Normal ROM s pain - Neuro Neuro: Alert and oriented X 3, No motor deficit, Normal speech Eye Opening: Spontaneous Motor: Obeys Commands Verbal: Oriented GCS Score: 15 Results - Vitals Vitals: Vital Signs - 24 hr 02/15/18 02/15/18 00:12 00:40 Temperature 36.5 C Heart Rate 66 68 Respiratory 16 16 Rate Blood Pressure 115/75 116/76 O2 Saturation 98 98 Oxygen O2 Source Room air PD MEDICAL DECISION MAKING - ED course Complexity details: reviewed old records, reviewed results, re-evaluated patient, considered differential, d/w patient, d/w family ED course: Patient was seen and examined at bedside. patient was well appearing and in no distress. patient was offered fluids and pain medication but she stated she would rather go home since she was feeling better. patient was treated with zofran for nausea and stable for discharge with outpatient follow up. - Sepsis Event Vital Signs: Vital Signs - 24 hr 02/15/18 02/15/18 00:12 00:40 Temperature 36.5 C Heart Rate 66 68 Respiratory 16 16 Rate Blood Pressure 115/75 116/76 O2 Saturation 98 98 Oxygen O2 Source Room air Departure - Departure Disposition: Home, Self Care Clinical Impression: Headache Condition: Good Instructions: ED Headache Migraine Follow-Up: primary,care provider [Other] Prescriptions: Ondansetron Odt [Zofran] 4 mg TL Q6H PRN #14 tablet PRN Reason: Nausea / Vomiting Comments: Your symptoms today are likely being caused by a migraine headache. it has likely been induced because of lack of sleep and mild dehydration. I know it is hard to sleep while breast feeding, but any extra sleep you can get could be helpful. You have been prescribed zofran to help with the nausea so you can stay well hydrated. You should take ibuprofen and benadryl for your headaches. You can return to the emergency department at any time for new, worsening or uncontrollable symptoms. Discharge Date/Time: 02/15/18 00:40
[2018-02-15 00:41] VITALS: BP 116/76
== END 2018-02-15 00:40 | disposition home or self-care (01) ==
LOC: ED 23:59
DX: R51 Headache (principal); R11.0 Nausea; I10 Essential (primary) hypertension
CPT/HCPCS: 99283

== ENCOUNTER 2018-10-04 14:16 | Emergency (ER) | payer MEDICAID ==
[2018-10-04] MEDS ORDERED: ONDANSETRON 4 MG/2 ML VIAL IVP STA (14:39)
[2018-10-04] MEDS ORDERED: SODIUM CHLORIDE 0.9% 1,000 ML IV ONE ×2 (14:39→15:22)
--- NOTE | 2018-10-04 14:39 | ED Physician Documentation ---
PD HPI NVD - Stated complaint Stated Complaint: V/D - Chief complaint Chief Complaint: Abd Pain - History obtained from History obtained from: Patient - History of Present Illness Timing - onset: Today (Started having N/V and diarrhea this morning. Took zofran which helped, but still nauseous. Feels weak and dizzy.) Associated symptoms: No: Abdominal pain (but has cramping) Review of Systems Constitutional: reports: Reviewed and negative Nose: reports: Reviewed and negative Cardiac: reports: Reviewed and negative Respiratory: reports: Reviewed and negative PD PAST MEDICAL HISTORY - Past Medical History Cardiovascular: Hypertension Respiratory: None Endocrine/Autoimmune: None GI: None : None HEENT: Chronic vision loss Psych: Anxiety Musculoskeletal: Scoliosis Derm: None - Past Surgical History Past Surgical History: Yes Ortho: Other - Present Medications Home Medications: Ambulatory Orders Medication Instructions Recorded Confirmed Sertraline [Zoloft] 50 mg PO DAILY 07/12/17 07/13/17 Ondansetron Odt [Zofran] 4 mg TL Q6H PRN #14 tablet 02/15/18 Metoclopramide [Reglan] 10 mg PO Q6H PRN #20 tablet 10/04/18 Ondansetron Odt [Zofran] 4 mg TL Q6H PRN #10 tablet 10/04/18 - Allergies Allergies/Adverse Reactions: Allergies Allergy/AdvReac Type Severity Reaction Status Date / Time acetaminophen Allergy Anaphylaxis Verified 10/04/18 14:29 - Social History Does the pt smoke?: No Smoking Status: Never smoker Does the pt drink ETOH?: No Does the pt have substance abuse?: No - Immunizations Immunizations are current?: Yes - POLST Patient has POLST: No PD ED PE NORMAL - Vitals Vital signs reviewed: Yes - General General: Alert and oriented X 3, No acute distress - HEENT HEENT: Moist mucous membranes - Cardiac Cardiac: Other (slightly tachycardic) - Abdomen Abdomen: Normal bowel sounds, Soft, Non tender - Neuro Neuro: Alert and oriented X 3, Normal speech Results - Vitals Vitals: Vital Signs - 24 hr 10/04/18 14:27 Temperature 37.0 C Heart Rate 104 H Respiratory 18 Rate Blood Pressure 112/80 O2 Saturation 98 Oxygen O2 Source Room air - Labs Labs: Laboratory Tests 10/04/18 15:00 Sodium 136 Potassium 3.7 Chloride 98 L Carbon Dioxide 21 Anion Gap 17.0 H BUN 22 H Creatinine 0.6 Estimated GFR (MDRD) 117 Glucose 104 H Calcium 9.4 Total Bilirubin 1.2 H AST 25 ALT 21 Alkaline Phosphatase 76 Total Protein 7.6 Albumin 4.8 Globulin 2.8 Albumin/Globulin Ratio 1.7 Lipase 27 PD MEDICAL DECISION MAKING - ED course ED course: 32-year-old woman with what sounds like viral gastroenteritis versus food poisoning. The gastroenteritis was confirmed during her stay because she had received a call from her and her child started vomiting as well. She felt better after IV fluids and antiemetics. Labs show modest dehydration. She passed an oral challenge here. She remained nontender prior to discharge. Departure - Departure Disposition: 01 Home, Self Care Clinical Impression: Gastroenteritis Condition: Good Record reviewed to determine appropriate education?: Yes Instructions: ED Gastroenteritis Viral Prescriptions: Metoclopramide [Reglan] 10 mg PO Q6H PRN #20 tablet PRN Reason: nausea or headache Ondansetron Odt [Zofran] 4 mg TL Q6H PRN #10 tablet PRN Reason: Nausea / Vomiting Comments: You should be improved in the next 12 to 24 hours. Return in that timeframe if not improving or anytime if worse or if you develop significant abdominal pain or fever.
[2018-10-04] MEDS ORDERED: LOPERAMIDE 2 MG CAPSULE PO STA (14:48)
[2018-10-04 15:22] LABS: ALBUMIN 4.8 g/dL (3.2-5.5); ALBUMIN/GLOBULIN RATIO 1.7 (1.0-2.2); BILIRUBIN,TOTAL 1.2 mg/dL (0.2-1.0); CALCIUM 9.4 mg/dL (8.5-10.3); CREATININE 0.6 mg/dL (0.4-1.0); TOTAL PROTEIN 7.6 g/dL (6.7-8.2)
[2018-10-04] MEDS ORDERED: KETOROLAC 30 MG/ML VIAL IVP STA (15:24)
[2018-10-04 17:12] VITALS: BP 116/76
== END 2018-10-04 17:13 | disposition home or self-care (01) ==
LOC: ED 14:16
DX: K52.9 Noninfective gastroenteritis and colitis, unspecified (principal); E86.0 Dehydration; I10 Essential (primary) hypertension
CPT/HCPCS: 36415; 80053; 83690; 96361; 96374; 96375; 99283; A9270